=== PATIENT | female | born 1950 | race African-American/Black ===

== ENCOUNTER → 2017-08-12 | Outpatient (CLI) | payer OTHER ==
[~2017-08-12] MED LIST: LIPITOR10 MG PO; NORCO 5-325 TA1 EACH PO; PROTONIX40 M2 PO; TYLENOL EX-STR500 M2 PO
== END ==
LOC: RAD 03:10
DX: Z12.31 Encounter for screening mammogram for malignant neoplasm of breast (principal)

== ENCOUNTER → 2018-08-14 | Outpatient (CLI) | payer OTHER | LOC: RAD 04:46 | DX: Z12.31 Encounter for screening mammogram for malignant neoplasm of breast (principal) ==

== ENCOUNTER → 2019-08-26 | Outpatient (CLI) | payer OTHER | LOC: RAD 14:39 | DX: Z12.31 Encounter for screening mammogram for malignant neoplasm of breast (principal) ==

== ENCOUNTER → 2020-08-29 | Outpatient (CLI) | payer OTHER | LOC: BC 09:53 | PROVIDERS: ATTEND Nurse Practitioner | DX: Z12.31 Encounter for screening mammogram for malignant neoplasm of breast (principal); N64.89 Other specified disorders of breast; N60.82 Other benign mammary dysplasias of left breast; N60.81 Other benign mammary dysplasias of right breast ==

== ENCOUNTER → 2020-08-31 | Outpatient (CLI) | payer OTHER | LOC: RAD 13:21 | PROVIDERS: ATTEND Nurse Practitioner | DX: R13.19 Other dysphagia (principal) ==

== ENCOUNTER → 2021-04-09 | Outpatient (CLI) | payer OTHER | LOC: ULTRA 04-04 10:09 | PROVIDERS: ATTEND Nurse Practitioner | DX: R10.10 Upper abdominal pain, unspecified (principal); R10.9 Unspecified abdominal pain ==

== ENCOUNTER → 2021-08-30 | Outpatient (CLI) | payer OTHER | LOC: BC 10:15 | PROVIDERS: ATTEND Nurse Practitioner | DX: Z12.31 Encounter for screening mammogram for malignant neoplasm of breast (principal); N64.89 Other specified disorders of breast ==